=== PATIENT | female | born 1990 | race Caucasian/White ===

== ENCOUNTER 2020-04-03 07:53 | Emergency (ER) | payer SELFPAY ==
[~2020-04-03] VITALS: Ht 167.6 cm; Wt 90.7 kg
[2020-04-03 07:53] VITALS: BP_SYST 155
[2020-04-03 08:19] VITALS: BP_SYST 155
== END 2020-04-03 08:19 ==
LOC: SED 07:53
DX: R60.0 Localized edema (principal)
CPT/HCPCS: 99283